=== PATIENT | male | born 1990 | race Caucasian/White ===

== ENCOUNTER 2017-02-28 20:03 | Emergency (ER) | payer OTHER ==
[~2017-02-28] VITALS: Ht 200.7 cm; Wt 103.8 kg
[2017-02-28 20:04] VITALS: BP 116/73
== END 2017-02-28 21:28 | disposition home or self-care (01) ==
LOC: ED 21:15
DX: S00.33XA Contusion of nose, initial encounter (principal); S09.90XA Unspecified injury of head, initial encounter; X58.XXXA Exposure to other specified factors, initial encounter; Y93.9 Activity, unspecified; Y92.328 Other athletic field as the place of occurrence of the external cause; Y99.8 Other external cause status
CPT/HCPCS: 70160; 99284

== ENCOUNTER → 2018-04-24 | Outpatient (CLI) | payer OTHER | END | disposition home or self-care (01) | LOC: CFH 08:06 | PROVIDERS: ATTEND Nurse Practitioner Family | DX: H93.19 Tinnitus, unspecified ear (principal); G43.909 Migraine, unspecified, not intractable, without status migrainosus; R42 Dizziness and giddiness | CPT/HCPCS: 70450 ==